=== PATIENT | female | born 1985 | race Caucasian/White ===

== ENCOUNTER → 2023-08-17 | Outpatient (CLI) | payer OTHER ==
[~2023-08-17] MED LIST: CHOL12508 PO; CINN500C15 PO; DOXY100T; HYDR500C PO; IRON150C5 PO; NOXI1TAB PO; PRIL20TA2 PO; VITA250T4 PO; VITA500C24 PO; ZINC220CA PO
== END ==
LOC: M WHC 12:31
PROVIDERS: ATTEND Nurse Practitioner Primary Care
DX: Z12.31 Encounter for screening mammogram for malignant neoplasm of breast (principal)

== ENCOUNTER → 2023-09-06 | Outpatient (CLI) | payer OTHER | LOC: M WHC 09:06 | PROVIDERS: ATTEND Nurse Practitioner Primary Care | DX: Z12.31 Encounter for screening mammogram for malignant neoplasm of breast (principal) ==

== ENCOUNTER 2023-09-28 11:42 | Day surgery (SDC) | payer OTHER ==
[~2023-09-28] VITALS: Ht 172.7 cm; Wt 115.8 kg
[~2023-09-28 11:42] MED LIST changes: +METF850T4 PO; +PHEN30CA21 PO
[2023-09-28 12:12] LABS: HEMATOCRIT 40.5 % (36.0-47.0); HEMOGLOBIN 13.5 g/dl (12.0-15.5)
[2023-09-28] MEDS ORDERED: CO Q10CA PO (13:11)
[2023-09-28] MEDS ORDERED: MAGN400C PO (13:11)
[2023-09-28] MEDS ORDERED: fentaNYL 100 MCG/2 ML INJECTION As Ordered ONE (13:40)
[2023-09-28] MEDS ORDERED: KETOROLAC 60MG 2ML VIAL As Ordered ONE (13:40)
[2023-09-28] MEDS ORDERED: propofoL 200 MG/20 ML VIAL As Ordered ONE (13:40)
[2023-09-28] MEDS ORDERED: MIDAZOLAM INJ 2MG/2ML VIAL As Ordered ONE (13:40)
[2023-09-28] MEDS ORDERED: LIDOCAINE 2% 100MG/5ML SDV (FOR ANES.) As Ordered ONE (13:40)
[2023-09-28] MEDS ORDERED: ONDANSETRON 4MG 2ML VIAL As Ordered ONE (13:40)
[2023-09-28] MEDS: DOXYCYCLINE HYCLATE 100MG TABLET PO ONE (14:21)
[2023-09-28] MEDS: LIDOCAINE 1% SDV 30ML VIAL As Ordered ONE (14:30)
[2023-09-28] MEDS: LEVONORGESTREL 52MG (MIRENA) IUD As Ordered ONE (14:43)
[2023-09-28] MEDS ORDERED: SCOPOLAMINE 1MG TRANSDERMAL PATCH As Ordered ONE (14:43)
[2023-09-28] MEDS ORDERED: SILVER NITRATE APPLICATOR (1 = QTY 10) As Ordered ONE (14:44)
[2023-09-28] MEDS ORDERED: ACETAMINOPHEN 1000MG 100ML IV BAG As Ordered ONE (15:00)
[2023-09-28] MEDS ORDERED: dexmedeTOMIDine (4MCG/ML)200MCG/50ML BTL (PRECEDEX) As Ordered ONE (15:13)
[2023-09-28] MEDS ORDERED: ONDANSETRON 4MG 2ML VIAL IV PRN (15:55)
[2023-09-28] MEDS ORDERED: fentaNYL 100 MCG/2 ML INJECTION IV PRN (15:55)
[2023-09-28] MEDS: LR 1,000 ML IV SCH (15:55)
[2023-09-28] MEDS: HYDROMORPHONE HCL 0.5 MG/ 0.5 ML SYRINGE IV PRN (16:00)
[2023-09-28] MEDS: oxyCODONE 5MG TAB PO PRN (16:00)
[2023-09-28 16:58] VITALS: BP 129/70; TEMP 97.7; O2SAT 99
== END 2023-09-28 17:22 | disposition home or self-care (01) ==
LOC: M SDC 11:42
PROVIDERS: ATTEND Obstetrics & Gynecology
DX: N93.8 Other specified abnormal uterine and vaginal bleeding (principal); Z97.5 Presence of (intrauterine) contraceptive device; I10 Essential (primary) hypertension; Z90.81 Acquired absence of spleen; Z91.410 Personal history of adult physical and sexual abuse; F43.10 Post-traumatic stress disorder, unspecified; F41.9 Anxiety disorder, unspecified; K76.0 Fatty (change of) liver, not elsewhere classified; Z79.899 Other long term (current) drug therapy; Z88.0 Allergy status to penicillin; Z88.5 Allergy status to narcotic agent; Z87.891 Personal history of nicotine dependence; Z79.84 Long term (current) use of oral hypoglycemic drugs
CPT/HCPCS: 36415; 58558; 58579; 81025; 85014; 85018; 88305; J0131; J1100; J1170; J1885; J2250; J2405; J3010; J7298

== ENCOUNTER 2024-02-28 09:40 | Observation (INO) | payer OTHER ==
[~2024-02-28] VITALS: Ht 172.7 cm; Wt 119.7 kg
[~2024-02-28 09:40] MED LIST changes: +ADAL80PE4; +CO Q10CA PO; +D5W IV ONE; +GENTAMICIN IV ONE; +MAGN400C PO; +METF10004 PO; +NIAC500T29 PO; +OMEP40CA5 PO; +PHEN15CA6; +PROZ20CA11 PO; +VITA250T27 PO; -VITA250T4 PO
[2024-02-28] MEDS: metroNIDAZOLE 500 MG in IV 1 EA IV ONE (10:32)
[2024-02-28 10:50] LABS: PARTIAL THROMBOPLASTIN TIME 36.9 SECONDS (24.8-34.2); PROTHROMBIN TIME 12.9 SECONDS (12.5-14.5)
[2024-02-28 11:04] LABS: ALBUMIN 3.6 G/DL (3.2-5.2); ALKALINE PHOSPHATASE 107 U/L (46-116); ALT/SGPT 21 U/L (7.0-40); AST/SGOT 12 U/L (<34); BILIRUBIN,TOTAL 0.3 MG/DL (0.3-1.2); BLOOD UREA NITROGEN 5 MG/DL (9-23); CALCIUM LEVEL 9.7 MG/DL (8.5-10.1); CARBON DIOXIDE LEVEL 29 MMOL/L (20-31); CHLORIDE LEVEL 101 MMOL/L (98-107); CREATININE FOR GFR 0.61 MG/DL (0.55-1.30); GLOMERULAR FILTRATION RATE > 60.0 (>58); GLUCOSE, FASTING 93 MG/DL (60-100); POTASSIUM SERUM 4.8 MMOL/L (3.5-5.1); SODIUM LEVEL 134 MMOL/L (136-145)
[2024-02-28] MEDS ORDERED: LIDOCAINE 2% 100MG/5ML SDV (FOR ANES.) As Ordered ONE (13:00)
[2024-02-28] MEDS ORDERED: SUGAMMADEX SODIUM 500 MG/5 ML VIAL (BRIDION) As Ordered ONE (13:00)
[2024-02-28] MEDS ORDERED: ONDANSETRON 4MG 2ML VIAL As Ordered ONE (13:00)
[2024-02-28] MEDS ORDERED: ROCURONIUM BROMIDE 50MG/5ML VIAL As Ordered ONE (13:00)
[2024-02-28] MEDS ORDERED: propofoL 200 MG/20 ML VIAL As Ordered ONE (13:00)
[2024-02-28] MEDS ORDERED: ACETAMINOPHEN 1000MG 100ML IV BAG As Ordered ONE (13:00)
[2024-02-28] MEDS ORDERED: MIDAZOLAM INJ 2MG/2ML VIAL As Ordered ONE (13:01)
[2024-02-28] MEDS ORDERED: fentaNYL 100 MCG/2 ML INJECTION As Ordered ONE (13:01)
[2024-02-28] MEDS: SCOPOLAMINE 1MG TRANSDERMAL PATCH TOP ONE (14:30)
[2024-02-28] MEDS: CLINDAMYCIN 900 MG in IV 1 EA IV ONE (14:45)
[2024-02-28] MEDS: ENOXAPARIN 40MG/0.4ML SYRINGE (J1650 PER 10MG) SC ONE (14:48)
[2024-02-28] MEDS: GENTAMICIN IV ONE (15:00)
[2024-02-28] MEDS: D5W IV ONE (15:00)
[2024-02-28] MEDS ORDERED: HYDROmorphone HCL 2MG/ML 1ML VIAL As Ordered ONE (15:53)
[2024-02-28] MEDS ORDERED: dexmedeTOMIDine (4MCG/ML)200MCG/50ML BTL (PRECEDEX) As Ordered ONE (15:53)
[2024-02-28] MEDS: FLUORESCEIN 10% (100MG/ML) 5ML VIAL As Ordered ONE (17:55)
[2024-02-28] MEDS: ONDANSETRON 4MG 2ML VIAL IV PRN ×2 (18:11→23:27)
[2024-02-28] MEDS: fentaNYL 100 MCG/2 ML INJECTION IV PRN (18:11)
[2024-02-28] MEDS ORDERED: HYDROmorphone 2 MG TAB PO PRN (18:30)
[2024-02-28] MEDS: HYDROMORPHONE HCL 0.5 MG/ 0.5 ML SYRINGE IV PRN (19:04)
[2024-02-28] MEDS: traMADol 50 MG TAB PO ONE (19:06)
[2024-02-28 19:30] VITALS: BP 103/58; TEMP 97; O2SAT 93
[2024-02-28 20:00] VITALS: BP 103/56; TEMP 97.7; O2SAT 93
[2024-02-28 20:30] VITALS: BP 114/64; TEMP 97; O2SAT 94
[2024-02-28] MEDS: LR 1,000 ML IV SCH ×2 (20:52→20:53)
[2024-02-28] MEDS: ACETAMINOPHEN 500 MG TAB PO SCH (20:53)
[2024-02-28] MEDS: MIRALAX *UNIT DOSE* 17GM PACKET PO SCH (21:03)
[2024-02-28] MEDS: oxyCODONE 5MG TAB PO PRN (21:05)
[2024-02-28 21:24] VITALS: BP 123/57; TEMP 97.4; O2SAT 94
[2024-02-28 22:30] VITALS: BP 125/59; TEMP 97.2; O2SAT 94
[2024-02-28 23:30] VITALS: BP 120/57; TEMP 97.5; O2SAT 94
[2024-02-29 00:30] VITALS: BP 121/59; TEMP 97.9; O2SAT 97
[2024-02-29] MEDS: oxyCODONE 5MG TAB PO PRN (04:13)
[2024-02-29 04:30] VITALS: BP 107/51; TEMP 98.1; O2SAT 97
[2024-02-29 06:40] LABS: BASO % 0.1 % (0.0-1.0); HEMATOCRIT 33.9 % (36.0-47.0); HEMOGLOBIN 11.3 g/dl (12.0-15.5); LYMPH # 2.5 10^3/uL (1.5-5.0); LYMPH % 12.1 % (24.0-44.0); MEAN CORPUSCULAR HEMOGLOBIN 29.4 pg (27.0-33.0); MEAN CORPUSCULAR HGB CONC 33.3 g/dl (32.0-36.5); MEAN CORPUSCULAR VOLUME 88.3 fl (80.0-96.0); MONO % 4.9 % (2.0-8.0); NEUTROPHILS # 16.8 10^3/uL (1.5-8.5); NEUTROPHILS % 82.4 % (36.0-66.0); PLATELET COUNT, AUTOMATED 748 10^3/uL (150-450); RED BLOOD COUNT 3.84 10^6/uL (4.00-5.40); WHITE BLOOD COUNT 20.5 10^3/uL (4.0-10.0)
[2024-02-29 07:18] LABS: ALKALINE PHOSPHATASE 89 U/L (46-116); ALT/SGPT 18 U/L (7.0-40); AST/SGOT 10 U/L (<34); BILIRUBIN,TOTAL 0.4 MG/DL (0.3-1.2); BLOOD UREA NITROGEN 6 MG/DL (9-23); CALCIUM LEVEL 9.1 MG/DL (8.5-10.1); CARBON DIOXIDE LEVEL 27 MMOL/L (20-31); CHLORIDE LEVEL 102 MMOL/L (98-107); CREATININE FOR GFR 0.62 MG/DL (0.55-1.30); GLOMERULAR FILTRATION RATE > 60.0 (>58); GLUCOSE, FASTING 137 MG/DL (60-100); POTASSIUM SERUM 4.6 MMOL/L (3.5-5.1); SODIUM LEVEL 134 MMOL/L (136-145); TOTAL PROTEIN 6.7 G/DL (5.7-8.2)
[2024-02-29] MEDS: KETOROLAC 30 MG/ML 1ML VIAL IV SCH (08:21)
[2024-02-29] MEDS: FLUZONE VACCINE TRIVALENT PF(2024-25) 0.5ML SYRINGE IM.IMMUN ONE (08:23)
[2024-02-29] MEDS: OMEPRAZOLE 20MG CAP PO SCH (08:24)
[2024-02-29] MEDS: ENOXAPARIN 40MG/0.4ML SYRINGE (J1650 PER 10MG) SC SCH (08:24)
[2024-02-29 08:36] VITALS: BP 120/58; TEMP 98.5; O2SAT 96
== END 2024-02-29 12:16 | disposition home or self-care (01) ==
LOC: M SDC 09:40 → M RR INP 09:41 → M PED 19:39
PROVIDERS: ADMIT Obstetrics & Gynecology; ATTEND Obstetrics & Gynecology
DX: N85.8 Other specified noninflammatory disorders of uterus (principal); R10.2 Pelvic and perineal pain; N93.9 Abnormal uterine and vaginal bleeding, unspecified; D68.04 Acquired von Willebrand disease; G47.33 Obstructive sleep apnea (adult) (pediatric); Z88.0 Allergy status to penicillin; Z88.5 Allergy status to narcotic agent; Z79.899 Other long term (current) drug therapy; Z79.84 Long term (current) use of oral hypoglycemic drugs
CPT/HCPCS: 36415; 58571; 80053; 81025; 85025; 85610; 85730; 86850; 86900; 86901; 86920; 88307; 90471; 90656; 96372; 96374; 96375; 96376; A6024; J0131; J0665; J0737; J1100; J1170; J1580; J1650; J1836; J1885; J2250; J2405; J3010

== ENCOUNTER → 2024-05-29 | Outpatient (CLI) | payer OTHER ==
[~2024-05-29] MED LIST changes: -D5W IV ONE; -GENTAMICIN IV ONE
[2024-05-29 18:03] LABS: BASO # 0.1 10^3/uL (0.0-0.2); BASO % 0.5 % (0.0-1.0); EOS # 0.3 10^3/uL (0.0-0.5); EOS % 2.1 % (0.0-3.0); HEMATOCRIT 41.8 % (36.0-47.0); HEMOGLOBIN 13.8 g/dl (12.0-15.5); LYMPH # 4.6 10^3/uL (1.5-5.0); LYMPH % 29.5 % (24.0-44.0); MEAN CORPUSCULAR HEMOGLOBIN 28.6 pg (27.0-33.0); MEAN CORPUSCULAR VOLUME 86.5 fl (80.0-96.0); MONO # 1.1 10^3/uL (0.0-0.8); MONO % 7.1 % (2.0-8.0); NEUTROPHILS # 9.3 10^3/uL (1.5-8.5); NEUTROPHILS % 60.3 % (36.0-66.0); PLATELET COUNT, AUTOMATED 896 10^3/uL (150-450); RED BLOOD COUNT 4.83 10^6/uL (4.00-5.40); WHITE BLOOD COUNT 15.5 10^3/uL (4.0-10.0)
[2024-05-29 18:39] LABS: ALBUMIN 3.2 G/DL (3.2-5.2); ALKALINE PHOSPHATASE 114 U/L (35-104); ALT/SGPT 37 U/L (7.0-40); AST/SGOT 20 U/L (<34); BILIRUBIN,TOTAL 0.4 MG/DL (0.3-1.2); BLOOD UREA NITROGEN 10 MG/DL (9-23); CALCIUM LEVEL 10.2 MG/DL (8.5-10.1); CARBON DIOXIDE LEVEL 27 MMOL/L (20-31); CHLORIDE LEVEL 103 MMOL/L (98-107); CREATININE FOR GFR 0.59 MG/DL (0.55-1.30); GLOMERULAR FILTRATION RATE > 60.0 (>58); GLUCOSE, FASTING 96 MG/DL (60-100); POTASSIUM SERUM 4.3 MMOL/L (3.5-5.1); SODIUM LEVEL 136 MMOL/L (136-145); TOTAL PROTEIN 7.9 G/DL (5.7-8.2)
== END ==
LOC: M LAB 16:21
PROVIDERS: ATTEND Internal Medicine Hematology & Oncology
DX: D72.829 Elevated white blood cell count, unspecified (principal)